=== PATIENT | male | born 1960 | race Caucasian/White ===

== ENCOUNTER 2016-09-18 09:32 | Day surgery (SDC) | payer OTHER ==
--- NOTE | 2016-09-10 14:54 | HISTORY AND PHYSICAL E ---
History and Physical NAME: MAURICE SU : 1960 AGE: 55Y ADMITTED: 09/18/2016 ROOM: CHIEF COMPLAINT: Colon screening. HISTORY OF PRESENT ILLNESS: Patient presented at this time regarding colon screening. SOCIAL HISTORY: . Does not smoke. Drinks rarely. PAST SURGICAL HISTORY: 1. Sinuses. 2. Appendectomy. REVIEW OF SYSTEMS: CARDIAC: Hypertension. High cholesterol. ENDOCRINE: Negative. ONCOLOGY/HEMATOLOGY: Negative. GASTROINTESTINAL: Colon screening. History of sigmoid polypectomy. Adenoma polyp. PHYSICAL EXAMINATION: VITAL SIGNS: Blood pressure is 130/80, pulse 80, respirations 18, temp is 98. HEAD, EYES, EARS, NOSE, THROAT: Normal. NECK: Supple. LUNGS: Clear. ABDOMEN: Soft. NEUROLOGICAL: Negative. MEDICATIONS: 1. Norvasc. 2. Singulair. 3. Nexium. 4. Micardis. 5. Simvastatin. 6. Omeprazole. The patient referred to us by [facility]. I saw him 08/26/16. Known to us since 2012. Sigmoid polyp resected. Adenoma polyp. At this time, patient for followup colonoscopy. FAMILY HISTORY: Father had brain tumor. Mom is alive. CONCLUSION: Colon screening. History of sigmoid polyp, adenoma. PLAN: Colon exam. DICTATING PHYSICIAN: CRYSTAL BAUM M.D. 1211M 1333 Y#: [id number] ID: [id number] JOB#: [id number] ACCT: [id number] cc:[facility] CRYSTAL KNOWLES M.D. >
[~2016-09-18 09:32] MED LIST: EPINEPHRINE INJ 1 MG/10 ML DISP.SYRIN ONE; FENTANYL CITRATE INJ/PF 100 MCG/2 ML AMPUL ONE; FLUMAZENIL INJ 0.5 MG/5 ML VIAL IV ONE; GLUCAGON,HUMAN RECOMB 1 MG INJ ONE; GLYCOPYRROLATE INJ 0.4 MG/2 ML VIAL ONE; LIDOCAINE 2% JELLY 30 ML TUBE ONE; MIDAZOLAM 2 MG/2 ML INJ ONE; NALOXONE HCL INJ/PF 0.4 MG/1 ML SDV ONE; ONDANSETRON HCL INJ/PF 4 MG/2 ML SDV ONE
[2016-09-18 11:19] VITALS: BP 113/78
[2016-09-18 11:28] LABS: ABSOLUTE BASOPHILS # (AUTO) 0.1 10^3/uL (0.0-0.2); ABSOLUTE EOSINOPHILS # (AUTO) 0.1 10^3/uL (0.0-0.6); ABSOLUTE LYMPHOCYTES (AUTO) 1.2 10^3/uL (0.5-4.7); ABSOLUTE MONOCYTES (AUTO) 0.6 10^3/uL (0.1-1.4); ABSOLUTE NEUT (AUTO) 7.2 10^3/uL (1.7-8.2); BASOPHILS % (AUTO) 0.6 % (0-2); EOSINOPHILS % (AUTO) 0.8 % (0-6); HEMATOCRIT 47.6 % (37.9-51.0); HEMOGLOBIN 16.3 g/dL (13.5-17.0); HGB HCT DIFFERENCE 1.3; LYMPHOCYTES % (AUTO) 12.6 % (13-45); MEAN CORPUSCULAR HEMOGLOBIN 30.4 pg (27.0-33.4); MEAN CORPUSCULAR HGB CONC 34.3 g/dL (32.0-36.0); MEAN CORPUSCULAR VOLUME 89 fl (80-97); MONOCYTES % (AUTO) 6.3 % (3-13); RED BLOOD COUNT 5.36 10^6/uL (4.35-5.55); RED CELL DISTRIBUTION WIDTH 13.4 % (11.5-14.0); SEGMENTED NEUTROPHILS % (AUTO) 79.7 % (42-78); WHITE BLOOD COUNT 9.1 10^3/uL (4.0-10.5)
--- NOTE | 2016-09-18 12:14 | DISCHARGE SUMMARY E ---
Discharge Summary NAME: MAURICE SU : 1960 AGE: 55Y ADMITTED: 09/18/2016 DISCHARGED: 09/18/2016 PROCEDURE: Colonoscopy and biopsy. HISTORY: The patient is a 55-year-old gentleman, ALLERGIC TO PENICILLIN, who underwent colon screening today. He does have history of polypectomy, adenoma polyp, sigmoid, back in 2012. Today's colonoscopy shows benign-looking polyps at rectosigmoid junction, 2-3 mm in size, 2 in number, biopsy obtained. Today's colonoscopy was complete to the cecum. DISCHARGE PLAN: Soft, low-residue diet. Awaiting biopsy results. Consideration for follow-up colonoscopy in 3-5 years. Hold aspirin and Celebrex for 3 days. Baseline CBC. Continue the rest of medications, Micardis, Norvasc, Prilosec. Avoid heavy exertion. The patient is to see us in the office in the next few days. DICTATING PHYSICIAN: CRYSTAL BAUM M.D. 1209M 1046 Y#: [id number] ID: [id number] JOB#: [id number] ACCT: [id number] cc:[facility] CRYSTAL BAUM M.D. >
--- NOTE | 2016-09-18 12:16 | OPERATIVE REPORT E ---
Operative Report NAME: MAURICE SU : 1960 AGE: 55Y DATE OF SURGERY: 09/18/2016 ROOM: PREOPERATIVE DIAGNOSES: 1. Colon screening. 2. History of polyps. POSTOPERATIVE DIAGNOSIS: Benign-looking sigmoid polyps, 2-3 mm in size each x2 in number. PROCEDURE: Colonoscopy. SURGEON: CRYSTAL BAUM M.D. ANESTHESIA: Versed 2 mg and Fentanyl 100 mcg. TISSUE REMOVED OR ALTERED: Biopsy of polyp, rectosigmoid. DESCRIPTION OF PROCEDURE: Rectal exam - Normal. Sigmoid and descending colon benign-looking polyps. Transverse colon normal. Ascending colon normal. Cecum normal. Scope withdrawn from cecum, ascending, transverse, descending and sigmoid all the way to the rectum. CONCLUSIONS: Benign-looking rectosigmoid polyps 2-3 mm in size each, biopsy obtained. RECOMMENDATIONS: The patient is discharged on soft, low-residue diet for 3 days. Awaiting biopsy results. Consideration of follow-up colonoscopy in 3-5 years pending biopsy results. DICTATING PHYSICIAN: CRYSTAL BAUM M.D. 1209M 1043 PHY#: [id number] ID: [id number] JOB#: [id number] ACCT: [id number] cc:[facility] CRYSTAL BAUM M.D. >
== END 2016-09-18 11:30 | disposition home or self-care (01) ==
LOC: END 09:32
PROVIDERS: ATTEND Specialist
PROC: 0DBN8ZX Excision of Sigmoid Colon, Via Natural or Artificial Opening Endoscopic, Diagnostic (ICD-10-PCS; 2016-09-18)
PROC: 0DBP8ZX Excision of Rectum, Via Natural or Artificial Opening Endoscopic, Diagnostic (ICD-10-PCS; principal; 2016-09-18 10:00)
DX: Z12.11 Encounter for screening for malignant neoplasm of colon (principal); D12.7 Benign neoplasm of rectosigmoid junction; I10 Essential (primary) hypertension; E78.00 Pure hypercholesterolemia, unspecified; Z79.899 Other long term (current) drug therapy; Z88.0 Allergy status to penicillin
CPT/HCPCS: 45380; 36415; 85025; 88305 ×2; J2250; J3010; J1610; J2405; J0171; J2310; J3490

== ENCOUNTER → 2017-03-09 | Outpatient (CLI) | payer OTHER ==
--- NOTE | 2017-03-09 16:30 | RADIOLOGY REPORT (SQ) ---
EXAM DESCRIPTION: CT CHEST WITHOUT COMPLETED DATE/TIME: 03/09/2017 1:43 pm REASON FOR STUDY: PULMONARY NODULE R91.1 SOLITARY PULMONARY NODULE COMPARISON: 12/17/2015 TECHNIQUE: CT scan performed of the chest without intravenous contrast. Images reviewed with lung, soft tissue and bone windows. Reconstructed coronal and sagittal MPR images reviewed. All images st ored on PACS. All CT scanners at this facility use dose modulation, iterative reconstruction, and/or weight based d osing when appropriate to reduce radiation dose to as low as reasonably achievable (ALARA). [facility]: Dose Right [facility]: CareDose [facility]: Dose Right [facility]: Teradose 4D [facility]: [employer] RADIATION DOSE: Up-to-date CT equipment and radiation dose reduction techniques were employed. CTDIv ol: 13.5 mGy. DLP: 492 mGy-cm. mGy. LIMITATIONS: No technical limitations. FINDINGS: LUNGS AND PLEURA: A densely calcified granuloma is once again present in the left lung. T here is no new pulmonary nodule. There is no infiltrate or effusion. HILAR AND MEDIASTINAL STRUCTURES: No identified masses or abnormal nodes. No obvious aneurysm. HEART AND VASCULAR STRUCTURES: No aneurysm. No pericardial effusion. UPPER ABDOMEN: No significant findings. Limited exam. THYROID AND OTHER SOFT TISSUES: No masses. No adenopathy. BONES: No significant finding. HARDWARE: None in the chest. OTHER: No other significant findings. IMPRESSION: There is no change in the appearance of the chest. Once again a densely calcified granu magno is present. TECHNICAL DOCUMENTATION: JOB ID: [id number] Quality ID # [id number]: Final reports with documentation of one or more dose reduction techniques (e.g., Au tomated exposure control, adjustment of the mA and/or kV according to patient size, use of iterative reconstruction technique) 2010 [employer]- All Rights Reserved
== END ==
LOC: RAD 13:23
PROVIDERS: ATTEND Family Medicine
DX: R91.1 Solitary pulmonary nodule (principal)
CPT/HCPCS: 71250

== ENCOUNTER → 2018-08-15 | Outpatient (CLI) | payer OTHER ==
--- NOTE | 2018-08-15 11:38 | RADIOLOGY REPORT (SQ) ---
EXAM DESCRIPTION: CT CHEST WITHOUT COMPLETED DATE/TIME: 08/15/2018 8:11 am REASON FOR STUDY: SOLITARY PULMONARY NODULE R91.1 SOLITARY PULMONARY NODULE COMPARISON: 03/09/2017. TECHNIQUE: CT scan performed of the chest without intravenous contrast. Images reviewed with lung, soft tissue and bone windows. Reconstructed coronal and sagittal MPR images reviewed. All images st ored on PACS. All CT scanners at this facility use dose modulation, iterative reconstruction, and/or weight based d osing when appropriate to reduce radiation dose to as low as reasonably achievable (ALARA). [facility]: Dose Right [facility]: CareDose [facility]: Dose Right [facility]: Teradose 4D [facility]: [employer] RADIATION DOSE: CT Rad equipment meets quality standard of care and radiation dose reduction techniq ues were employed. CTDIvol: 14.4 mGy. DLP: 555 mGy-cm. mGy. LIMITATIONS: No technical limitations. FINDINGS: LUNGS AND PLEURA: Calcified granuloma left upper lobe. No new or suspicious nodules. No effusions. HILAR AND MEDIASTINAL STRUCTURES: No identified masses or abnormal nodes. No obvious aneurysm. HEART AND VASCULAR STRUCTURES: No aneurysm. No pericardial effusion. UPPER ABDOMEN: No significant findings. Limited exam. THYROID AND OTHER SOFT TISSUES: No masses. No adenopathy. BONES: No significant finding. HARDWARE: None in the chest. OTHER: No other significant findings. IMPRESSION: Old granulomatous disease. No acute findings TECHNICAL DOCUMENTATION: JOB ID: [id number] Quality ID # [id number]: Final reports with documentation of one or more dose reduction techniques (e.g., Au tomated exposure control, adjustment of the mA and/or kV according to patient size, use of iterative reconstruction technique) 2010 [employer]- All Rights Reserved Reading location - IP/workstation name: [email or web address]
== END ==
LOC: RAD 07:55
PROVIDERS: ATTEND Family Medicine
DX: R91.1 Solitary pulmonary nodule (principal)
CPT/HCPCS: 71250

== ENCOUNTER → 2020-01-16 | Outpatient (CLI) | payer OTHER ==
--- NOTE | 2020-01-16 16:19 | RADIOLOGY REPORT (SQ) ---
EXAM DESCRIPTION: ANKLE LEFT COMPLETE IMAGES COMPLETED DATE/TIME: 01/16/2020 3:55 pm REASON FOR STUDY: PAIN IN LEFT ANKLE AND JOINTS OF LEFT FOOT M25.572 PAIN IN LEFT ANKLE AND JOINTS OF LEFT FOOT COMPARISON: None. NUMBER OF VIEWS: Three views. TECHNIQUE: AP, lateral, and oblique radiographic images acquired of the left ankle. LIMITATIONS: None. FINDINGS: MINERALIZATION: Normal. BONES: There is a small osteochondral defect in the dome of the talus laterally. JOINTS: No effusions. SOFT TISSUES: No soft tissue swelling. No foreign body. OTHER: No other significant finding. IMPRESSION: Small osteochondral defect the dome of the talus. TECHNICAL DOCUMENTATION: JOB ID: [id number] 2010 [employer]- All Rights Reserved Reading location - IP/workstation name: [email or web address]
--- NOTE | 2020-01-16 16:20 | RADIOLOGY REPORT (SQ) ---
EXAM DESCRIPTION: FOOT LEFT COMPLETE IMAGES COMPLETED DATE/TIME: 01/16/2020 3:55 pm REASON FOR STUDY: PAIN IN LEFT ANKLE AND JOINTS OF LEFT FOOT M25.572 PAIN IN LEFT ANKLE AND JOINTS OF LEFT FOOT COMPARISON: None. NUMBER OF VIEWS: Three views. TECHNIQUE: AP, lateral and oblique radiographic images acquired of the left foot. LIMITATIONS: None. FINDINGS: MINERALIZATION: Normal. BONES: No acute fracture or dislocation. No worrisome bone lesions. Plantar calcaneal spur. JOINTS: Minimal degenerative changes in the 1st metatarsal-phalangeal joint. SOFT TISSUES: No soft tissue swelling. No foreign body. OTHER: No other significant finding. IMPRESSION: Minimal degenerative changes. Calcaneal spur. No acute finding. TECHNICAL DOCUMENTATION: JOB ID: [id number] 2010 [employer]- All Rights Reserved Reading location - IP/workstation name: [email or web address]
== END ==
LOC: OD 15:23
PROVIDERS: ATTEND Family Medicine
DX: M25.572 Pain in left ankle and joints of left foot (principal)

== ENCOUNTER → 2020-02-10 | Outpatient (CLI) | payer OTHER ==
--- NOTE | 2020-02-10 13:22 | RADIOLOGY REPORT (SQ) ---
EXAM DESCRIPTION: MRI LT LOWER JOINT WITHOUT IMAGES COMPLETED DATE/TIME: 02/10/2020 11:45 am REASON FOR STUDY: M93.272 LEFT ANKLE PAIN, OSTEOCHONDRITIS M93.272 OSTEOCHONDRITIS DISSECANS, L ANK LE AND JOINTS OF LEF COMPARISON: None. TECHNIQUE: Left ankle images acquired and stored on PACS. Multiplanar images include fat sensitive s equences as T1, fluid sensitive sequences as FST2/STIR, cartilage sensitive sequences as FSPD, and gr adient echo sequences. LIMITATIONS: None. FINDINGS: BONE MARROW: No alteration of signal to suggest marrow replacement or edema. No occult fra cture. No large osteophytes. EFFUSIONS: No. OSSEOUS ARTICULATIONS: Subchondral cyst formation along the lateral and medial margins of the articul ar surface of the talus. No loose body or unstable osteochondral lesion. TALAR DOME AND TIBIAL PLAFOND: See above. ACHILLES TENDON: Intact without partial or full-thickness tear. No adjacent bursal fluid or edema. TIBIALIS ANTERIOR TENDON: Intact without edema at the 1st MT attachment. TIBIALIS POSTERIOR TENDON: Normal morphology and no edema at the navicular attachment. No tendon flynn th fluid. FLEXOR HALLUCIS LONGUS AND FLEXOR DIGITORUM TENDONS: Normal morphology and no tendon sheath fluid. No edema of the os trigonum. PERONEUS LONGUS AND BREVIS TENDON: Normal morphology and no tendon sheath fluid. No subluxation. ATFL, CFL, PTFL: Intact. No thickening or signal alteration. No kera-ligamentous fluid. DELTOID LIGAMENT: Visualized components intact. TARSAL TUNNEL: No masses. No muscle atrophy. SINUS TARSI: No fluid. No reactive marrow edema or erosions. PLANTAR FASCIA: No signal alteration or tear. ADJACENT SOFT TISSUES: No masses. OTHER: No other significant finding. IMPRESSION: Degenerative changes in the ankle joint with associated subchondral cyst formation in th e talar dome. TECHNICAL DOCUMENTATION: JOB ID: [id number] 2010 [employer]- All Rights Reserved Reading location - IP/workstation name: [email or web address]
== END ==
LOC: RAD 11:09
PROVIDERS: ATTEND Orthopaedic Surgery
DX: M25.572 Pain in left ankle and joints of left foot (principal)